=== PATIENT | female | born 1940 | race Caucasian/White ===

== ENCOUNTER → 2017-08-30 | Outpatient (CLI) | payer MEDICARE, OTHER ==
[~2017-08-30] MED LIST: ASPIRIN81 M2; COQ-10100 MG; FISH OIL 1,2001 EAC4; GLUCOPHAGE1000 MG; GLYBURIDE 5 MG T5 M1; LASIX 40 MG TAB40 MG; LISINOPRIL5 MG; MULTIVITAMINS1 EAC7; NORCO 5-325 TA1 EACH PO; OMEPRAZOLE20 M2; POTASSIUM20; ULTRAM 50MG TAB50 MG PO; VERAPAMIL ER120 MG; VITAMIN C125 MG; atrovastatin
== END ==
LOC: M.RAD 07:38
DX: Z12.31 Encounter for screening mammogram for malignant neoplasm of breast (principal)

== ENCOUNTER → 2018-09-23 | Outpatient (CLI) | payer MEDICARE, OTHER | LOC: M.RAD 08:58 | DX: Z12.31 Encounter for screening mammogram for malignant neoplasm of breast (principal) ==

== ENCOUNTER → 2019-12-17 | Outpatient (CLI) | payer MEDICARE, OTHER | LOC: M.RAD 07:30 | PROVIDERS: ATTEND Nurse Practitioner Primary Care | DX: Z12.31 Encounter for screening mammogram for malignant neoplasm of breast (principal) ==

== ENCOUNTER → 2021-03-13 | Outpatient (CLI) | payer MEDICARE, OTHER | LOC: M.RAD 02-23 08:00 | PROVIDERS: ATTEND Nurse Practitioner Primary Care | DX: Z12.31 Encounter for screening mammogram for malignant neoplasm of breast (principal) ==